=== PATIENT | male | born 1965 | race Caucasian/White ===

== ENCOUNTER 2019-09-10 20:37 | Emergency (ER) | payer SELFPAY ==
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
[2019-09-10 20:34] VITALS: BP 153/93; PULSE 88; RESP 20; TEMP 36.8; O2SAT 99
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
[2019-09-10] MEDS: HALOPERIDOL LACTATE 5 MG/ML VIAL IM (20:53)
[2019-09-10 21:36] LABS: Ethanol 343 mg/dL (<10)
[2019-09-10 22:13] VITALS: BP 125/80; PULSE 67; RESP 18; O2SAT 100
[2019-09-10 23:49] VITALS: BP 111/70; PULSE 72; RESP 18; O2SAT 100
[2019-09-11 00:53] VITALS: BP 107/68; PULSE 61; RESP 14; O2SAT 99
[2019-09-11 05:58] VITALS: BP 105/69; PULSE 62; RESP 18; TEMP 36.6; O2SAT 94
--- NOTE | 2019-09-11 06:06 | PC.NURSE ---
Per EDP Juan, patient to be discharged when patient is alert and oriented x3. Patient not oriented at this time.
--- NOTE | 2019-09-11 07:06 | PC.NURSE ---
Patient alert and oriented at this time.
[2019-09-11 07:20] VITALS: BP 132/70; PULSE 63; RESP 16; TEMP 36.7; O2SAT 100
== END 2019-09-11 07:21 | disposition home or self-care (01) ==
PROVIDERS: Emergency Provider Emergency Medicine
DX: F10.129 Alcohol abuse with intoxication, unspecified (principal); Y90.0 Blood alcohol level of less than 20 mg/100 ml; S01.411A Laceration without foreign body of right cheek and temporomandibular area, initial encounter; W19.XXXA Unspecified fall, initial encounter
CPT/HCPCS: 36415; 70450; 70486; 80307; 96372; 99284; J1630

== ENCOUNTER 2023-05-01 14:43 | Emergency (ER) | payer OTHER, SELFPAY ==
--- NOTE | ~2023-05-01 | US_ITS ---
EXAMINATION: US venous doppler UE RT DATE: 05/01/2023 16:18 INDICATION: Right upper extremity swelling with bruising TECHNIQUE: Romero scale images with and without compression and Doppler images of the right upper extre mity veins were obtained. COMPARISON: None. FINDINGS: The right internal jugular vein, subclavian vein, axillary vein, brachial veins, basilic vein, cephal ic vein, radial vein, and ulnar vein are patent. In the right upper extremity in the area of abnormality there is a complex heterogeneous area of soft tissue measuring 9.2 x 3.4 x 4.1 cm, most likely hematoma. IMPRESSION: 1. Patent right upper extremity veins. No evidence of deep venous thrombosis. 2: Complex heterogeneous area of soft tissue right upper extremity adjacent to the by sepsis measurin g up to 9.2 cm, likely hematoma. Recommend follow-up ultrasound as clinically warranted. Reviewed, dictated and finalized at location B. PSYCH IMPRESSION: 1. Patent right upper extremity veins. No evidence of deep venous thrombosis. 2: Complex heterogeneous area of soft tissue right upper extremity adjacent to the by sepsis measuring up to 9.2 cm, likely hematoma. Recommend follow-up ultr asound as clinically warranted.
[2023-05-01 14:44] VITALS: BP 151/112; PULSE 70; RESP 16; TEMP 36.3; O2SAT 99
[2023-05-01 16:18] VITALS: BP 136/90; PULSE 68; RESP 17; O2SAT 99
--- NOTE | 2023-05-01 17:13 | ED.GENADULT ---
[facility] - General Adult General Chief complaint: Extremity Injury, Upper Stated complaint: arm is turning purple Time Seen by Provider: 05/01/23 17:05 Source: patient Mode of arrival: ambulatory Limitations: no limitations History of Present Illness [facility] narrative: This is a 58-year-old male who presents the ED with chief complaint of spontaneous bruising to the right biceps area. He 1st noticed this around 3:00 a.m. this morning. Reports that he woke up to go to the bathroom and saw that his arm was bruised. He denies any recent injury or pain. He states that when he uses his biceps he feels a little pull in but is very minor. States the area of bruising has not grown since onset. denies any known history of bleeding disorders. Denies fevers, chills,, numbness, weakness. Patient reports that he drinks a pt of vodka per day. States he has not been to the doctor in many years. Related Data Allergies Allergy/AdvReac Type Severity Reaction Status Date / Time No Known Allergies Allergy Verified 05/01/23 14:47 Review of Systems Review of Systems: All systems as dictated in [facility] Past Medical History Medical History (Updated 05/01/23 @ 17:56 by Saarbjit Cao PA-C) Medical history unknown Surgical History Surgical History (System 12/17/19 @ 12:26 by Imelda Scanlon) Surgical history unknown Social History Social History (System 12/17/19 @ 12:26 by Imelda Scanlon) Alcohol intake: current Exam Narrative: GENERAL: Well-appearing, well-nourished, and in no acute distress. HEAD: Normocephalic, atraumatic. EYES: PERRLA and EOMI. ENT: Nares clear, no rhinorrhea or epistaxis. Mucous membranes moist. Oropharynx without tonsillar hypertrophy exudate or other lesions. NECK: Supple. No adenopathy or masses. CHEST: No respiratory distress. Clear to auscultation. No wheezes rales or rhonchi HEART: Regular rate and rhythm. No murmur heard. Normal peripheral pulses. ABDOMEN: Soft, nontender, nondistended, normal active bowel sounds. MSK: Normal range of motion. No edema. 5/5 strength to bilateral biceps. No tenderness throughout the bilateral upper extremities. Compartments are soft. Neurovascularly intact distally. SKIN: Large area of ecchymosis covering the right biceps area. NEURO: Alert and oriented x3. No focal deficits. PSYCH: Normal mood and affect. Course Vital Signs Vital signs: Vital Signs Temperature 97.3 F L 05/01/23 14:44 Pulse Rate 70 05/01/23 14:44 Respiratory Rate 16 05/01/23 14:44 Blood Pressure 151/112 H 05/01/23 14:44 Pulse Oximetry 99 05/01/23 14:44 Temperature 97.3 F L 05/01/23 14:44 Pulse Rate 68 05/01/23 16:18 Respiratory Rate 17 05/01/23 16:18 Blood Pressure 136/90 05/01/23 16:18 Pulse Oximetry 99 05/01/23 16:18 Medical Decision Making MDM Narrative Medical decision making narrative: This is a 58-year-old male who presents to the ED with chief complaint of right upper extremity bruising beginning spontaneously this morning and 1st noticed at 3:00 a.m.. Vitals are normal. Exam reveals large area of ecchymoses covering the right biceps area. There was no injury. He has full strength and his compartments are soft throughout. Ultrasound 1. Patent right upper extremity veins. No evidence of deep venous thrombosis. 2: Complex heterogeneous area of soft tissue right upper extremity adjacent to the by sepsis measuring up to 9.2 cm, likely hematoma. Recommend follow-up ultrasound as clinically warranted.. Patient admitted to daily use basic labs were drawn. CBC, chemistries, coags all unremarkable. Symptoms consistent with spontaneous hematoma/ecchymosis. Given that this is nontraumatic and he does not have any further complaints feel he is stable to go. He will be given instructions to follow-up with PCP and a PCP referral, as he may need a repeat ultrasound. Return precautions given supportive measures discussed. Patie
[2023-05-01 17:39] LABS: Basophils Percent Auto 0.6 % (0.2-1.2); Eosinophils Absolute Auto 0.2 K/mm3 (0-0.3); Eosinophils Percent Auto 3.3 % (0-4.4); Hematocrit 47.3 % (42.0-52.0); Hemoglobin 15.4 g/dL (14.0-18.0); Immature Granulocyte Absolute 0.02 K/mm3 (0.00-0.031); Immature Granulocyte Percent A 0.3 % (0-0.5); Lymphocytes Absolute Auto 1.63 K/mm3 (0.9-3.2); Lymphocytes Percent Auto 22.5 % (18.3-44.2); Mean Corpuscular HGB Conc 32.6 g/dl (32-36); Mean Corpuscular Hemoglobin 32.8 pg (26-34); Mean Corpuscular Volume 100.9 fl (80-100); Mean Platelet Volume 8.6 fl (7.4-10.4); Monocytes Absolute Auto 0.7 K/mm3 (0.1-0.6); Monocytes Percent Auto 9.6 % (2.6-8.5); Neutrophils Absolute Auto 4.6 K/mm3 (1.3-6.7); Neutrophils Percent Auto 63.7 % (45.5-73.1); Platelet Count Result 342 k/mm3 (150-375); Red Blood Count 4.69 M/mm3 (4.6-6.20); Red Cell Distribution Width 12.8 % (11.5-14.5); White Blood Count 7.3 K/mm3 (4.5-10.0)
[2023-05-01 17:48] LABS: INR 0.9; Prothrombin Time 12.6 Seconds (11.1-14.7)
[2023-05-01 17:49] LABS: Partial Thromboplastin Time 29.2 SECONDS (22.3-36.8)
[2023-05-01 17:50] LABS: Alanine Aminotransferase 22 U/L (6-50); Albumin Level 4.4 g/dL (3.5-5.1); Alkaline Phosphatase 71 U/L (38-126); Anion Gap 9 mmol/L (8-16); Aspartate Amino Transferase 30 U/L (17-59); Bilirubin,Total 0.5 mg/dL (0.2-1.3); Blood Urea Nitrogen 18 mg/dL (9-20); Carbon Dioxide 24 mmol/L (22-30); Chloride 107 mmol/L (98-107); Estimated CRCL calculation 115 ml/min; Estimated Glomerular Filt Rate > 60; Glucose 88 mg/dL (65-110); Potassium 4.3 mmol/L (3.4-5.0); Sodium 140 mmol/L (137-145)
== END 2023-05-01 18:16 | disposition home or self-care (01) ==
PROVIDERS: Emergency Provider Physician Assistant
DX: R23.3 Spontaneous ecchymoses (principal)
CPT/HCPCS: 36415; 80048; 80076; 85025; 85610; 85730; 93971; 99284